=== PATIENT | female | born 1935 | race Two or more races ===

== ENCOUNTER 2021-11-15 16:13 | Inpatient (IN) | payer MEDICARE, OTHER ==
[~2021-11-15] VITALS: Ht 149.9 cm; Wt 49.6 kg
[2021-11-15] MEDS ORDERED: ATOR10TA84 PO (18:37)
[2021-11-15] MEDS ORDERED: FAMO20 PO (18:37)
[2021-11-15] MEDS ORDERED: PERCT PO (18:37)
[2021-11-15] MEDS ORDERED: RAMI5CAP67 PO (18:41)
[2021-11-15] MEDS ORDERED: FURO20 PO (18:41)
[2021-11-15] MEDS ORDERED: DOCU-270 PO (18:41)
[2021-11-15] MEDS ORDERED: LEVO25TA9 PO (18:41)
[2021-11-15] MEDS ORDERED: DONE10TA8 PO (18:41)
[2021-11-15] MEDS ORDERED: CLOP75TA60 PO (18:41)
[2021-11-15 19:29] LABS: BASOPHILS % (AUTO) 0.5 % (0.0-2.0); EOSINOPHILS % (AUTO) 1.1 % (1.0-6.0); HEMATOCRIT 23.1 % (36-46); HEMOGLOBIN 7.4 g/dL (12.0-16.0); LYMPHOCYTES # (AUTO) 0.9 K/uL (1.0-4.8); LYMPHOCYTES % (AUTO) 10.5 % (22.0-44.0); MEAN CORPUSCULAR HEMOGLOBIN 23.2 pg (26.0-34.0); MEAN CORPUSCULAR HGB CONC 31.8 G/dL (31.0-37.0); MEAN CORPUSCULAR VOLUME 73 fL (80-100); MONOCYTES # (AUTO) 0.7 K/uL (0.1-1.0); MONOCYTES % (AUTO) 8.3 % (2.0-9.0); NEUTROPHILS # (AUTO) 6.7 K/uL (1.8-7.7); NEUTROPHILS % (AUTO) 79.6 % (40.0-70.0); PLATELET COUNT (AUTO) 503 K/uL (150-450); RED BLOOD CELL COUNT(AUTO) 3.17 MIL/uL (4.00-5.20)
[2021-11-15 19:41] LABS: ANION GAP 10 mmol/L (8-16); CALCIUM, TOTAL 8.6 mg/dL (8.8-10.5); CARBON DIOXIDE 29 mmol/L (22-29); CHLORIDE 107 mmol/L (98-107); CREATININE 0.73 mg/dL (0.60-1.30); GLUCOSE,RANDOM 105 mg/dL (70-110); POTASSIUM 3.4 mmol/L (3.5-5.1); SODIUM SERUM 146 mmol/L (136-145); UREA NITROGEN, BLOOD 16 mg/dL (7-18)
[2021-11-15 19:50] LABS: ALANINE AMINOTRANSFERASE 28 U/L (12-78); ALBUMIN 2.4 g/dL (3.4-5.0); ALKALINE PHOSPHATASE 96 U/L (46-116); ASPARTATE AMINOTRANSFERASE 27 U/L (15-37); BILIRUBIN,TOTAL 0.2 mg/dL (0.1-1.0); TOTAL PROTEIN, SERUM 7.4 g/dL (6.4-8.2)
[2021-11-15 19:56] LABS: GLOMERULAR FILTR. RATE CALC > 60 mL/min (>60)
[2021-11-15 20:05] LABS: CREATINE KINASE, TOTAL ONLY 188 U/L (26-192)
[2021-11-15 20:11] LABS: B-TYPE NATRIURETIC PEPTIDE 378 pg/mL (0-100)
[2021-11-15] MEDS ORDERED: HEPARIN SODIUM 25000 UNITS/D5W 250 ML IV PRN (21:00)
[2021-11-15 21:14] LABS: PROTHROMBIN TIME 10.8 SEC (9.4-11.6)
[2021-11-15] MEDS ORDERED: HEPARIN SODIUM,PORCINE 5,000 UNITS/ML VIAL IVP PRN ×2 (21:15)
[2021-11-15] MEDS ORDERED: ACETAMINOPHEN 500 MG TABLET PO ONE (21:15)
[2021-11-15 21:30] LABS: COVID AG,FIA SOURCE NASOPHARYNGEAL
[2021-11-15] MEDS ORDERED: DOXYCYCLINE HYCLATE 100 MG TABLET PO ONE (23:30)
[2021-11-16] MEDS ORDERED: HEPARIN SODIUM,PORCINE 5,000 UNITS/ML VIAL IVP PRN ×2 (06:15)
[2021-11-16] MEDS ORDERED: HEPARIN SODIUM,PORCINE 5,000 UNITS/ML VIAL IVP ONE (06:15)
[2021-11-16] MEDS ORDERED: DOCUSATE SODIUM 100 MG CAPSULE PO PRN (06:15)
[2021-11-16] MEDS ORDERED: HEPARIN SODIUM 25000 UNITS/D5W 250 ML IV PRN (06:15)
[2021-11-16] MEDS ORDERED: ATORVASTATIN CALCIUM 40 MG TABLET PO ONE (06:15)
[2021-11-16 06:25] LABS: BASOPHILS % (AUTO) 1.1 % (0.0-2.0); HEMATOCRIT 22.9 % (36-46); HEMOGLOBIN 7.3 g/dL (12.0-16.0); LYMPHOCYTES # (AUTO) 1.1 K/uL (1.0-4.8); LYMPHOCYTES % (AUTO) 14.1 % (22.0-44.0); MEAN CORPUSCULAR HEMOGLOBIN 23.1 pg (26.0-34.0); MEAN CORPUSCULAR HGB CONC 31.7 G/dL (31.0-37.0); MEAN CORPUSCULAR VOLUME 73 fL (80-100); MONOCYTES # (AUTO) 0.7 K/uL (0.1-1.0); MONOCYTES % (AUTO) 9.3 % (2.0-9.0); NEUTROPHILS # (AUTO) 5.5 K/uL (1.8-7.7); NEUTROPHILS % (AUTO) 73.5 % (40.0-70.0); PLATELET COUNT (AUTO) 466 K/uL (150-450); RED BLOOD CELL COUNT(AUTO) 3.14 MIL/uL (4.00-5.20); RED CELL DISTRIBUTION WIDTH 18.1 % (11.5-14.5)
[2021-11-16] MEDS ORDERED: MORPHINE SULFATE 2 MG/ML SYRINGE IVP PRN (06:30)
[2021-11-16] MEDS ORDERED: ONDANSETRON HCL 4 MG/2 ML VIAL IVP PRN (06:30)
[2021-11-16] MEDS ORDERED: MORPHINE SULFATE 4 MG/ML SYRINGE IVP PRN (06:30)
[2021-11-16] MEDS ORDERED: RINGERS SOLUTION,LACTATED 1,000 ML IV ONE (06:30)
[2021-11-16 06:31] LABS: INR 1.1 (0.9-1.1); PROTHROMBIN TIME 11.2 SEC (9.4-11.6)
[2021-11-16 06:42] LABS: % IRON SATURATION 3.5 % (22-44); IRON, SERUM 12 mcg/dL (50-175); TOTAL IRON BINDING CAPACITY 338 mcg/dL (250-450)
[2021-11-16] MEDS ORDERED: ASPIRIN 81 MG CHEWABLE TABLET PO SCH (08:00)
[2021-11-16] MEDS ORDERED: CLOPIDOGREL BISULFATE 75 MG TABLET PO SCH (09:00)
[2021-11-16] MEDS: DONEPEZIL HCL 10 MG TABLET PO SCH ×2 (09:00→09:20)
[2021-11-16] MEDS: LEVOTHYROXINE SODIUM 25 MCG TABLET PO SCH (09:20)
[2021-11-16] MEDS: FAMOTIDINE 20 MG TABLET PO SCH (09:21)
[2021-11-16] MEDS: CeFAZolin 1 GM/DEXTROSE 50 ML IV SCH ×2 (12:20→19:06)
[2021-11-17] VITALS (13 sets, daily range): BP systolic 117–169; BP diastolic 55–100
[2021-11-17] MEDS: LABETALOL HCL 100 MG TABLET PO SCH ×3 (01:17→20:48)
[2021-11-17] MEDS: HEPARIN SODIUM 25000 UNITS/D5W 250 ML IV PRN ×2 (02:12→09:40)
[2021-11-17] MEDS ORDERED: INFLUENZA VIRUS VACCINE QVS 2021-22 (6MO+)/PF 60 MCG/0.5 ML SYRINGE IM. ONE (05:45)
[2021-11-17 07:31] LABS: BASOPHILS % (AUTO) 0.6 % (0.0-2.0); EOSINOPHILS % (AUTO) 2.2 % (1.0-6.0); LYMPHOCYTES # (AUTO) 0.9 K/uL (1.0-4.8); LYMPHOCYTES % (AUTO) 14.6 % (22.0-44.0); MEAN CORPUSCULAR HEMOGLOBIN 23.1 pg (26.0-34.0); MEAN CORPUSCULAR HGB CONC 31.9 G/dL (31.0-37.0); MEAN CORPUSCULAR VOLUME 72 fL (80-100); MONOCYTES # (AUTO) 0.6 K/uL (0.1-1.0); MONOCYTES % (AUTO) 9.4 % (2.0-9.0); NEUTROPHILS # (AUTO) 4.5 K/uL (1.8-7.7); NEUTROPHILS % (AUTO) 73.2 % (40.0-70.0); PLATELET COUNT (AUTO) 449 K/uL (150-450); RED BLOOD CELL COUNT(AUTO) 2.65 MIL/uL (4.00-5.20); RED CELL DISTRIBUTION WIDTH 18.2 % (11.5-14.5)
[2021-11-17 07:41] LABS: ALANINE AMINOTRANSFERASE 19 U/L (12-78); ALBUMIN 1.9 g/dL (3.4-5.0); ALKALINE PHOSPHATASE 74 U/L (46-116); ANION GAP 4 mmol/L (8-16); ASPARTATE AMINOTRANSFERASE 21 U/L (15-37); BILIRUBIN,TOTAL 0.2 mg/dL (0.1-1.0); CALCIUM, TOTAL 7.8 mg/dL (8.8-10.5); CARBON DIOXIDE 29 mmol/L (22-29); CHLORIDE 107 mmol/L (98-107); CREATININE 0.59 mg/dL (0.60-1.30); GLOMERULAR FILTR. RATE CALC > 60 mL/min (>60); GLUCOSE,RANDOM 97 mg/dL (70-110); POTASSIUM 3.3 mmol/L (3.5-5.1); SODIUM SERUM 140 mmol/L (136-145); UREA NITROGEN, BLOOD 12 mg/dL (7-18)
[2021-11-17 08:11] LABS: HEMOGLOBIN 6.1 g/dL (12.0-16.0)
[2021-11-17 08:13] LABS: HEMATOCRIT 19.2 % (36-46)
[2021-11-17] MEDS: FAMOTIDINE 20 MG TABLET PO SCH (08:38)
[2021-11-17] MEDS: DONEPEZIL HCL 10 MG TABLET PO SCH (08:38)
[2021-11-17] MEDS: ATORVASTATIN CALCIUM 10 MG TABLET PO SCH (08:39)
[2021-11-17] MEDS: LEVOTHYROXINE SODIUM 25 MCG TABLET PO SCH (08:39)
[2021-11-17] MEDS: CeFAZolin 1 GM/DEXTROSE 50 ML IV SCH ×2 (10:04→20:48)
[2021-11-17] MEDS: SOD FERRIC GLUC COMPLX/SUCROSE 125 MG in SODIUM CHLORIDE 0.9% 100 ML IV SCH (10:04)
[2021-11-17] MEDS ORDERED: EPOETIN ALFA 10,000 UNITS/ML VIAL SQ ONE (13:15)
[2021-11-17] MEDS ORDERED: POTASSIUM CHL 10 MEQ/WATER 50 ML IV PRN (15:15)
[2021-11-17] MEDS ORDERED: POTASSIUM CHLORIDE 20 MEQ ER TABLET PO PRN (15:15)
[2021-11-17] MEDS: ACETAMINOPHEN 500 MG TABLET PO PRN (20:48)
[2021-11-17] MEDS: APIXABAN 5 MG TABLET PO SCH (20:48)
[2021-11-18 00:05] VITALS: BP 137/70
[2021-11-18] MEDS: CeFAZolin 1 GM/DEXTROSE 50 ML IV SCH ×2 (06:08→18:08)
[2021-11-18] MEDS: LEVOTHYROXINE SODIUM 25 MCG TABLET PO SCH (06:08)
[2021-11-18 06:13] VITALS: BP 133/57
[2021-11-18 06:58] LABS: BASOPHILS % (AUTO) 0.6 % (0.0-2.0); EOSINOPHILS % (AUTO) 1.4 % (1.0-6.0); HEMATOCRIT 24.3 % (36-46); HEMOGLOBIN 7.7 g/dL (12.0-16.0); LYMPHOCYTES # (AUTO) 0.8 K/uL (1.0-4.8); LYMPHOCYTES % (AUTO) 11.6 % (22.0-44.0); MEAN CORPUSCULAR HEMOGLOBIN 23.1 pg (26.0-34.0); MEAN CORPUSCULAR HGB CONC 31.6 G/dL (31.0-37.0); MEAN CORPUSCULAR VOLUME 73 fL (80-100); MONOCYTES # (AUTO) 0.7 K/uL (0.1-1.0); MONOCYTES % (AUTO) 9.8 % (2.0-9.0); NEUTROPHILS # (AUTO) 5.5 K/uL (1.8-7.7); NEUTROPHILS % (AUTO) 76.6 % (40.0-70.0); PLATELET COUNT (AUTO) 465 K/uL (150-450); RED BLOOD CELL COUNT(AUTO) 3.32 MIL/uL (4.00-5.20); RED CELL DISTRIBUTION WIDTH 18.3 % (11.5-14.5)
[2021-11-18 07:56] VITALS: BP 131/61
[2021-11-18] MEDS: APIXABAN 5 MG TABLET PO SCH ×2 (08:08→20:25)
[2021-11-18] MEDS: LABETALOL HCL 100 MG TABLET PO SCH ×2 (08:08→20:25)
[2021-11-18] MEDS: ATORVASTATIN CALCIUM 10 MG TABLET PO SCH (08:08)
[2021-11-18] MEDS: FAMOTIDINE 20 MG TABLET PO SCH (08:08)
[2021-11-18] MEDS: DONEPEZIL HCL 10 MG TABLET PO SCH (08:09)
[2021-11-18] MEDS: SOD FERRIC GLUC COMPLX/SUCROSE 125 MG in SODIUM CHLORIDE 0.9% 100 ML IV SCH (08:09)
[2021-11-18] MEDS: ACETAMINOPHEN 500 MG TABLET PO PRN (08:14)
[2021-11-18 12:03] VITALS: BP 118/54
[2021-11-18 15:46] VITALS: BP 167/75
[2021-11-18 20:10] VITALS: BP 171/81
[2021-11-19] VITALS (7 sets, daily range): BP systolic 125–170; BP diastolic 62–89
[2021-11-19] MEDS: LEVOTHYROXINE SODIUM 25 MCG TABLET PO SCH (06:17)
[2021-11-19] MEDS: CeFAZolin 1 GM/DEXTROSE 50 ML IV SCH ×2 (06:19→20:03)
[2021-11-19] MEDS: FAMOTIDINE 20 MG TABLET PO SCH (08:27)
[2021-11-19] MEDS: APIXABAN 5 MG TABLET PO SCH ×2 (08:27→20:02)
[2021-11-19] MEDS: DONEPEZIL HCL 10 MG TABLET PO SCH (08:27)
[2021-11-19] MEDS: LABETALOL HCL 100 MG TABLET PO SCH ×2 (08:28→20:02)
[2021-11-19] MEDS: ATORVASTATIN CALCIUM 10 MG TABLET PO SCH (08:28)
[2021-11-19] MEDS: SOD FERRIC GLUC COMPLX/SUCROSE 125 MG in SODIUM CHLORIDE 0.9% 100 ML IV SCH (11:48)
[2021-11-20] VITALS (7 sets, daily range): BP systolic 126–172; BP diastolic 50–86
[2021-11-20] MEDS: LEVOTHYROXINE SODIUM 25 MCG TABLET PO SCH (06:17)
[2021-11-20] MEDS: CeFAZolin 1 GM/DEXTROSE 50 ML IV SCH ×2 (07:16→23:04)
[2021-11-20] MEDS: LABETALOL HCL 100 MG TABLET PO SCH ×2 (09:46→22:06)
[2021-11-20] MEDS: DONEPEZIL HCL 10 MG TABLET PO SCH (09:46)
[2021-11-20] MEDS: APIXABAN 5 MG TABLET PO SCH ×2 (09:47→22:06)
[2021-11-20] MEDS: ATORVASTATIN CALCIUM 10 MG TABLET PO SCH (09:47)
[2021-11-20] MEDS: FAMOTIDINE 20 MG TABLET PO SCH (09:47)
[2021-11-20] MEDS: SOD FERRIC GLUC COMPLX/SUCROSE 125 MG in SODIUM CHLORIDE 0.9% 100 ML IV SCH (09:48)
[2021-11-20] MEDS ORDERED: CloNIDine HCL 0.1 MG TABLET PO PRN (16:45)
[2021-11-20] MEDS: AmLODIPine BESYLATE 5 MG TABLET PO SCH (17:07)
[2021-11-21 00:02] VITALS: BP 169/75
[2021-11-21 04:31] VITALS: BP 166/78
[2021-11-21] MEDS: LEVOTHYROXINE SODIUM 25 MCG TABLET PO SCH (05:59)
[2021-11-21] MEDS: CeFAZolin 1 GM/DEXTROSE 50 ML IV SCH (06:00)
[2021-11-21] MEDS: APIXABAN 5 MG TABLET PO SCH (08:09)
[2021-11-21] MEDS: LABETALOL HCL 100 MG TABLET PO SCH (08:09)
[2021-11-21] MEDS: FAMOTIDINE 20 MG TABLET PO SCH (08:10)
[2021-11-21] MEDS: AmLODIPine BESYLATE 5 MG TABLET PO SCH (08:10)
[2021-11-21] MEDS: DONEPEZIL HCL 10 MG TABLET PO SCH (08:10)
[2021-11-21] MEDS: ATORVASTATIN CALCIUM 10 MG TABLET PO SCH (08:10)
[2021-11-21 08:39] VITALS: BP 184/78
[2021-11-21] MEDS: SOD FERRIC GLUC COMPLX/SUCROSE 125 MG in SODIUM CHLORIDE 0.9% 100 ML IV SCH (09:00)
[2021-11-21 10:49] LABS: BASOPHILS % (AUTO) 0.5 % (0.0-2.0); EOSINOPHILS % (AUTO) 1.3 % (1.0-6.0); HEMATOCRIT 29.6 % (36-46); HEMOGLOBIN 9.3 g/dL (12.0-16.0); LYMPHOCYTES # (AUTO) 0.7 K/uL (1.0-4.8); LYMPHOCYTES % (AUTO) 9.5 % (22.0-44.0); MEAN CORPUSCULAR HEMOGLOBIN 24.3 pg (26.0-34.0); MEAN CORPUSCULAR HGB CONC 31.5 G/dL (31.0-37.0); MEAN CORPUSCULAR VOLUME 77 fL (80-100); MONOCYTES # (AUTO) 0.5 K/uL (0.1-1.0); MONOCYTES % (AUTO) 6.3 % (2.0-9.0); NEUTROPHILS # (AUTO) 6.2 K/uL (1.8-7.7); NEUTROPHILS % (AUTO) 82.4 % (40.0-70.0); PLATELET COUNT (AUTO) 548 K/uL (150-450); RED BLOOD CELL COUNT(AUTO) 3.84 MIL/uL (4.00-5.20); RED CELL DISTRIBUTION WIDTH 19.1 % (11.5-14.5)
[2021-11-21 11:15] LABS: ALANINE AMINOTRANSFERASE 22 U/L (12-78); ALBUMIN 2.7 g/dL (3.4-5.0); ALKALINE PHOSPHATASE 101 U/L (46-116); ANION GAP 7 mmol/L (8-16); ASPARTATE AMINOTRANSFERASE 30 U/L (15-37); BILIRUBIN,TOTAL 0.2 mg/dL (0.1-1.0); CALCIUM, TOTAL 8.8 mg/dL (8.8-10.5); CARBON DIOXIDE 30 mmol/L (22-29); CHLORIDE 106 mmol/L (98-107); CREATININE 0.79 mg/dL (0.60-1.30); GLOMERULAR FILTR. RATE CALC > 60 mL/min (>60); GLUCOSE,RANDOM 159 mg/dL (70-110); POTASSIUM 3.6 mmol/L (3.5-5.1); SODIUM SERUM 143 mmol/L (136-145); TOTAL PROTEIN, SERUM 7.4 g/dL (6.4-8.2); UREA NITROGEN, BLOOD 20 mg/dL (7-18)
[2021-11-21 11:33] VITALS: BP 150/75
[2021-11-21] MEDS ORDERED: FERR-89 PO (13:41)
[2021-11-21] MEDS ORDERED: APIX5TAB PO (13:42)
[2021-11-21] MEDS ORDERED: AMLO-257 PO (13:43)
[2021-11-21] MEDS ORDERED: FAMO20 PO (13:44)
[2021-11-21] MEDS ORDERED: LABE100T51 PO ×2 (13:44→13:49)
[2021-11-21] MEDS ORDERED: CLON0.1T2 PO (13:45)
== END 2021-11-21 14:15 | DRG 300 ==
LOC: EMS 16:25 → 5S 11-16 18:26
PROVIDERS: ADMIT Internal Medicine; ATTEND Internal Medicine
PROC: 30233N1 Transfusion of Nonautologous Red Blood Cells into Peripheral Vein, Percutaneous Approach (ICD-10-PCS; principal; 2021-11-17)
DX: I82.401 Acute embolism and thrombosis of unspecified deep veins of right lower extremity (principal); E44.0 Moderate protein-calorie malnutrition; I10 Essential (primary) hypertension; E03.9 Hypothyroidism, unspecified; E78.5 Hyperlipidemia, unspecified; Z20.822 Contact with and (suspected) exposure to COVID-19; I73.9 Peripheral vascular disease, unspecified; G31.84 Mild cognitive impairment of uncertain or unknown etiology; D63.1 Anemia in chronic kidney disease; Z60.2 Problems related to living alone; Z89.512 Acquired absence of left leg below knee; Z89.511 Acquired absence of right leg below knee
CPT/HCPCS: 80053; 82550; 83540; 83550; 83735; 83880; 84132; 84443; 84484; 85025; 85610; 85730; 86850; 86900; 86901; 86923; 93005; 93306; 93925; 93971; 97110; 97116; 97162; 97166; 97530; 97535; 99285; J0690; J0885; J1644; J2270; J2916; J7050; J7120; P9016